=== PATIENT | male | born 1930 | race Caucasian/White ===

== ENCOUNTER 2018-02-10 05:22 | Emergency (ER) | payer MEDICARE, OTHER ==
[~2018-02-10] VITALS: Ht 182.9 cm; Wt 102.1 kg
--- NOTE | 2018-02-10 05:36 | ED.ADGEN ---
Past History Past Medical History: A-Fib, CAD, Diabetes (TIFFANY DAVIS MD) Past Medical History: Kidney Stones (SAMINA HERNÁNDEZ MD) Past Surgical History: Other (TIFFANY DAVIS MD) Adult General Chief Complaint Chief Complaint "...I just got off the plane from [place] .. I know I am constipated.. .I off my prunes... I here for a big family reunion...:We are going the bury his ashes... With my brother was killed in a Bombing raid over [place] 47 years ago.. they just recently found his remains..."... ".. But I hurting down here on the Lt.....maybe something more than constipation... ".." I just did not want to mess up the reunion..." (TIFFANY DAVIS MD) HPI HPI Patient is a 87 year old male who presents with above hx and complaints of Lt. lower quadrant. Patient denies any previous history of diverticulitis. He has periodic constipation. Patient states pain comes more severe and is difficult walking because of pain. Patient has history of multiple medical problems. Patient diabetic, hypertensive, peripheral neuropathy, coronary artery disease, urinary retention, enlarged prostate, gait disorder, GERD, TIA, Hx. renal stones and Afib. Patient last ate trout at [employer] by the airport from 8 hours ago. No history of trauma. Recent travel from [place]. (TIFFANY DAVIS MD) Review of Systems Review of Systems Constitutional: Denies fever or chills [] Eyes: Denies change in visual acuity, redness, or eye pain [] HENT: Denies nasal congestion or sore throat [] Respiratory: Denies cough or shortness of breath [] Cardiovascular: No additional information not addressed in HPI [] GI: Complaints of left lower quadrant abdominal pain, nausea. Denies vomiting, bloody stools or diarrhea [] : Denies dysuria or hematuria [] Musculoskeletal: History of arthritic joint pain [] Integument: Denies rash or skin lesions [] Neurologic: Denies headache, focal weakness or sensory changes [] Endocrine: Hx. diabetes All other systems were reviewed and found to be within normal limits, except as documented in this note. (TIFFANY DAVIS MD) Family History Family History Noncontributory (TIFFANY DAVIS MD) Current Medications Current Medications Current Medications Medications (Trade) Dose Ordered Sig/Brendan Start Time Stop Time Status Last Admin Dose Admin Ceftriaxone Sodium 1 gm/ Sodium Chloride 50 ml @ 100 mls/hr 1X ONCE 02/10/18 07:45 02/10/18 08:14 UNV Ceftriaxone Sodium (Rocephin) 1 gm 1X ONCE 02/10/18 08:15 02/10/18 08:16 DC 02/10/18 08:30 1 GM Famotidine (Pepcid Vial) 20 mg 1X ONCE 02/10/18 06:30 02/10/18 06:31 DC 02/10/18 07:14 20 MG Fentanyl Citrate (Fentanyl 2ml Vial) 25 mcg PRN Q15MIN PRN 02/10/18 06:30 02/11/18 06:29 02/10/18 07:15 0.25 MCG Glycerin (Sani-Supp Adult) 1 supp STK-MED ONCE 02/10/18 05:41 02/10/18 05:42 DC Info (Do NOT chart on this entry -- for MONITORING) 1 each PRN DAILY PRN 02/10/18 06:30 02/12/18 06:29 Iohexol (Omnipaque 240 Mg/ml) 30 ml 1X ONCE 02/10/18 06:30 02/10/18 06:31 DC 02/10/18 08:07 30 ML Iohexol (Omnipaque 300 Mg/ml) 75 ml 1X ONCE 02/10/18 06:30 02/10/18 06:31 DC 02/10/18 08:07 75 ML Magnesium Hydroxide (Milk Of Magnesia) 2,400 mg 1X ONCE 02/10/18 06:30 02/10/18 06:31 DC 02/10/18 08:29 2,400 MG Metronidazole 100 ml @ 100 mls/hr 1X ONCE 02/10/18 08:10 02/10/18 09:09 DC 02/10/18 08:31 100 MLS/HR Ondansetron HCl (Zofran) 8 mg 1X ONCE 02/10/18 06:30 02/10/18 06:31 DC 02/10/18 07:14 8 MG Sodium Chloride 1,000 ml @ 100 mls/hr Q10H 02/10/18 06:15 02/10/18 16:14 02/10/18 07:13 100 MLS/HR (SAMINA HERNÁNDEZ MD) Allergies Allergies Allergies Uncoded Allergies Type Severity Reaction Last Updated Verified sulfa Allergy Unknown Unknown 02/10/18 (SAMINA HERNÁNDEZ MD) Allergies Allergic to sulfa (TIFFANY DAVIS MD) Physical Exam Physical Exam Constitutional: Moderately acute distress, non-toxic appearance. [] HENT: Normocephalic, atraumatic, bilateral external ears normal, oropharynx dry , no oral exudates, nose normal. [] Eyes: PERRLA, EOMI, conjunctiva normal, no discharge. [] Neck: Limited range of motion, no tenderness, supple, no stridor. [] Cardiovascular:Heart rate regular rhythm, no murmur []PMI to the left. Tachycardia. Lungs & Thorax: Bilateral breath sounds equal apex on auscultation []midline coronary artery bypass scar. He is scattered wheezes. Abdomen: Bowel sounds decreased, soft, left lower quadrant tenderness, no masses , no pulsatile masses. Distended. Rectal exam some hard stool. No gross blood. Has ecchymotic area left lower quadrant.- appears to be old Skin: Warm, dry, no erythema, no rash. [] Poor turgor Back: No tenderness, no CVA tenderness. [] Extremities: No tenderness, no cyanosis, no clubbing, ROM intact, no edema. Arthritic changes. Left psoas and heel tap findings Neurologic: Alert and oriented X 3, no gross motor function deficits ( from base line), decrease plantar sensory function, no gross or large focal deficits noted. [Family member daughter states he is at his baseline- neurologically. Psychologic: Affect anxious, judgement normal, mood normal. [] (TIFFANY DAVIS MD) Physical Exam Constitutional: Well developed, well nourished, no acute distress, non-toxic appearance. HENT: Normocephalic, atraumatic, bilateral external ears normal, oropharynx moist, no oral exudates, nose normal. Eyes: RUDY, EOMI, conjunctiva normal, no discharge. Neck: Normal range of motion, no tenderness, supple, no stridor. Cardiovascular: JVP not elevated. No carotid bruit. Nor precordial pulsations or heaves. S1 N,S2N. No murmurs. No rubs or clicks. Thorax and Lungs: Normal respiration. Normal chest expansion. Normal to percuss. Equal breath sounds. No crackles. No wheeze. Abdomen: Bowel sounds normal, soft, with left lower quadrant tenderness, no masses, no pulsatile masses. Skin: Warm, dry, no erythema, no rash. Back: No tenderness, no CVA tenderness. Extremities: Intact distal pulses, no tenderness, no cyanosis, no clubbing, ROM intact, no edema. Neurologic: Alert and oriented X 3, normal motor function, normal sensory function, no focal deficits noted. Psychologic: Affect normal, judgement normal, mood normal. (SAMINA HERNÁNDEZ MD) Current Patient Data Vital Signs Vital Signs Date Time Temp Pulse Resp B/P (MAP) Pulse Ox O2 Delivery O2 Flow Rate FiO2 02/10/18 08:57 62 20 158/66 (96) 96 Room Air 02/10/18 05:43 97.7 (SAMINA HERNÁNDEZ MD) Lab Results Laboratory Tests Test 02/10/18 06:47 02/10/18 06:53 Urine Collection Type Unknown Urine Color Yellow Urine Clarity Cloudy Urine pH 7.0 Urine Specific Steele 1.015 Urine Protein 30 mg/dl (NEG-TRACE) Urine Glucose (UA) Neg mg/dL (NEG) Urine Ketones (Stick) Neg mg/dL (NEG) Urine Blood Large (NEG) Urine Nitrite Neg (NEG) Urine Bilirubin Neg (NEG) Urine Urobilinogen Dipstick 0.2 mg/dL (0.2 mg/dL) Urine Leukocyte Esterase Mod (NEG) Urine RBC 20-40 /HPF (0-2) Urine WBC 11-20 /HPF (0-4) Urine Squamous Epithelial Cells Occ /LPF Urine Bacteria Few /HPF (0-FEW) White Blood Count 12.9 x10^3/uL (4.0-11.0) H Red Blood Count 5.65 x10^6/uL (4.30-5.70) Hemoglobin 15.5 g/dL (13.0-17.5) Hematocrit 47.2 % (39.0-53.0) Mean Corpuscular Volume 84 fL (79-100) Mean Corpuscular Hemoglobin 28 pg (25-35) Mean Corpuscular Hemoglobin Concent 33 g/dL (31-37) Red Cell Distribution Width 17.1 % (11.5-14.5) H Platelet Count 209 x10^3/uL (140-400) Neutrophils (%) (Auto) 78 % (31-73) H Lymphocytes (%) (Auto) 9 % (24-48) L Monocytes (%) (Auto) 11 % (0-9) H Eosinophils (%) (Auto) 1 % (0-3) Basophils (%) (Auto) 1 % (0-3) Neutrophils # (Auto) 10.1 x10^3uL (1.8-7.7) H Lymphocytes # (Auto) 1.2 x10^3/uL (1.0-4.8) Monocytes # (Auto) 1.4 x10^3/uL (0.0-1.1) H Eosinophils # (Auto) 0.2 x10^3/uL (0.0-0.7) Basophils # (Auto) 0.1 x10^3/uL (0.0-0.2) Prothrombin Time 11.3 SEC (9.4-11.4) Prothrombin Time INR 1.1 (0.9-1.1) PTT 27 SEC (23-33) Sodium Level 137 mmol/L (136-145) Potassium Level 3.8 mmol/L (3.5-5.1) Chloride Level 103 mmol/L (98-107) Carbon Dioxide Level 29 mmol/L (21-32) Anion Gap 5 (6-14) L Blood Urea Nitrogen 17 mg/dL (8-26) Creatinine 1.3 mg/dL (0.7-1.3) Estimated GFR (Cockcroft-Gault) 52.3 Glucose Level 123 mg/dL (70-99) H Calcium Level 10.2 mg/dL (8.5-10.1) H Total Bilirubin 0.9 mg/dL (0.2-1.0) Direct Bilirubin 0.2 mg/dL (0.0-0.2) Aspartate Amino Transferase (AST) 16 U/L (15-37) Alanine Aminotransferase (ALT) 21 U/L (16-63) Alkaline Phosphatase 86 U/L (46-116) Creatine Kinase 95 U/L (39-308) Creatine Kinase MB (Mass) 1.1 ng/mL (0.0-3.6) Creatine Kinase MB Relative Index 1.2 % (0-4) Troponin I Quantitative < 0.017 ng/mL (0-0.055) Total Protein 7.5 g/dL (6.4-8.2) Albumin 3.5 g/dL (3.4-5.0) Amylase Level 31 U/L (25-115) Lipase 70 U/L (73-393) L (SAMINA HERNÁNDEZ MD) Lab Results Laboratory Tests Test 02/10/18 06:47 02/10/18 06:53 Urine Collection Type Unknown Urine Color Yellow Urine Clarity Cloudy Urine pH 7.0 Urine Specific Steele 1.015 Urine Protein 30 mg/dl (NEG-TRACE) Urine Glucose (UA) Neg mg/dL (NEG) Urine Ketones (Stick) Neg mg/dL (NEG) Urine Blood Large (NEG) Urine Nitrite Neg (NEG) Urine Bilirubin Neg (NEG) Urine Urobilinogen Dipstick 0.2 mg/dL (0.2 mg/dL) Urine Leukocyte Esterase Mod (NEG) Urine RBC 20-40 /HPF (0-2) Urine WBC 11-20 /HPF (0-4) Urine Squamous Epithelial Cells Occ /LPF Urine Bacteria Few /HPF (0-FEW) White Blood Count 12.9 x10^3/uL (4.0-11.0) H Red Blood Count 5.65 x10^6/uL (4.30-5.70) Hemoglobin 15.5 g/dL (13.0-17.5) Hematocrit 47.2 % (39.0-53.0) Mean Corpuscular Volume 84 fL (79-100) Mean Corpuscular Hemoglobin 28 pg (25-35) Mean Corpuscular Hemoglobin Concent 33 g/dL (31-37) Red Cell Distribution Width 17.1 % (11.5-14.5) H Platelet Count 209 x10^3/uL (140-400) Neutrophils (%) (Auto) 78 % (31-73) H Lymphocytes (%) (Auto) 9 % (24-48) L Monocytes (%) (Auto) 11 % (0-9) H Eosinophils (%) (Auto) 1 % (0-3) Basophils (%) (Auto) 1 % (0-3) Neutrophils # (Auto) 10.1 x10^3uL (1.8-7.7) H Lymphocytes # (Auto) 1.2 x10^3/uL (1.0-4.8) Monocytes # (Auto) 1.4 x10^3/uL (0.0-1.1) H Eosinophils # (Auto) 0.2 x10^3/uL (0.0-0.7) Basophils # (Auto) 0.1 x10^3/uL (0.0-0.2) Prothrombin Time 11.3 SEC (9.4-11.4) Prothrombin Time INR 1.1 (0.9-1.1) PTT 27 SEC (23-33) Sodium Level 137 mmol/L (136-145) Potassium Level 3.8 mmol/L (3.5-5.1) Chloride Level 103 mmol/L (98-107) Carbon Dioxide Level 29 mmol/L (21-32) Anion Gap 5 (6-14) L Blood Urea Nitrogen 17 mg/dL (8-26) Creatinine 1.3 mg/dL (0.7-1.3) Estimated GFR (Cockcroft-Gault) 52.3 Glucose Level 123 mg/dL (70-99) H Calcium Level 10.2 mg/dL (8.5-10.1) H Total Bilirubin 0.9 mg/dL (0.2-1.0) Direct Bilirubin 0.2 mg/dL (0.0-0.2) Aspartate Amino Transferase (AST) 16 U/L (15-37) Alanine Aminotransferase (ALT) 21 U/L (16-63) Alkaline Phosphatase 86 U/L (46-116) Creatine Kinase 95 U/L (39-308) Creatine Kinase MB (Mass) 1.1 ng/mL (0.0-3.6) Creatine Kinase MB Relative Index 1.2 % (0-4) Troponin I Quantitative < 0.017 ng/mL (0-0.055) Total Protein 7.5 g/dL (6.4-8.2) Albumin 3.5 g/dL (3.4-5.0) Amylase Level 31 U/L (25-115) Lipase 70 U/L (73-393) L (TIFFANY DAVIS MD) EKG EKG My interpretation EKG shows a sinus rhythm at 68 bpm. There is leftward axis. But no findings acute STEMI of contralateral changes.[] (TIFFANY DAVIS MD) EKG 07:05 ECG Normal sinus rhythm at 68 with nonspecific T-wave changes I aVL and V6 (SAMINA HERNÁNDEZ MD) Radiology/Procedures Radiology/Procedures I interpretation of plain film shows pulmonary changes., Findings of post coronary artery bypass. No free air under the diaphragm. Extensive distribution stool in right colon. DJD and chronic changes.[] (TIFFANY DAVIS MD) Radiology/[place] [address] IMAGING REPORT Signed PATIENT: REJI RINCON ACCOUNT: [id number] : 1930 LOCATION: ER AGE: 87 SEX: M EXAM STATUS: REG ER ORD. PHYSICIAN: TIFFANY DAVIS MD REASON: Abd. Pain PROCEDURE: ACUTE ABDOMEN SERIES Acute Abdominal Series: Technique: PA view of the chest and supine and upright views of the abdomen were obtained. History: 2 days of abdominal pain. Comparison: None. Findings: There are median sternotomy wires. There is formed stool scattered throughout the colon. There is a paucity small bowel gas. The pulmonary vessels appear normal. There is patchy opacities in the lung bases and blunting of the costophrenic angles. There is no free air. Impression: 1. Constipation. 2. Basilar pulmonary infiltrates likely discoid atelectasis. Electronically signed by: Abi Damon III, MD (02/10/2018 8:09 AM) [facility] DICTATED AND SIGNED BY: ABI DAMON III, MD DATE: 02/10/18 0807 CC: TIFFANY DAVIS MD; SAMINA HERNÁNDEZ MD; NON,STAFF ~ [address] [address] IMAGING REPORT Signed PATIENT: REJI RINCON ACCOUNT: [id number] : 1930 LOCATION: ER AGE: 87 SEX: M EXAM STATUS: REG ER ORD. PHYSICIAN: TIFFANY DAVIS MD REASON: Pain PROCEDURE: CT ABD PELV W/ORAL&IV CONTRAST CT SCAN OF THE ABDOMEN AND PELVIS WITH IV CONTRAST. History: Mid to lower left abdominal pain for 2 days Comparison:None. Procedure: Contiguous axial images of the abdomen and pelvis were performed after the administration of 70 cc of Omni 300 IV contrast and oral contrast. CT Abdomen with contrast: Findings: The heart is moderately dilated. There is formed stool scattered throughout the colon. The scalp condition of the aorta and great vessels without aneurysm. Liver: Unremarkable Spleen: Normal in size and homogeneous. There are 2 splenules inferior to the spleen. Pancreas: Unremarkable Adrenal Glands: Unremarkable Kidneys: There is moderate left hydroureter and left hydronephrosis and significant perinephric edema. There are nonobstructive stones in the renal pelvises bilaterally. There is a simple cyst posteriorly in the lower pole of the right kidney. There is no mass or lymphadenopathy. There is no free air. There is no free fluid. 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 There is also multilevel moderate neuroforaminal stenosis bilaterally. CT Pelvis with Contrast: Findings: There is a 8 mm stone in the urinary bladder near the left UVJ. There is no free fluid. There is no lymphadenopathy. Impression: 1. 8 mm stone in the urinary bladder near the left UVJ. 2. Moderate left hydroureter and left hydronephrosis. 3. Significant perinephric edema left suggests a ruptured calyx. 4. Additional nonobstructive stones the renal pelvises bilaterally. 5. 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 6. Constipation. 7. Moderately dilated cardiomegaly. PQRS Compliance Statement: One or more of the following individualized dose reduction techniques were utilized for this examination: 1. Automated exposure control 2. Adjustment of the mA and/or kV according to patient size 3. Use of iterative reconstruction technique Electronically signed by: Abi Damon III, MD (02/10/2018 8:32 AM) [facility] DICTATED AND SIGNED BY: ABI DAMON III, MD DATE: 02/10/18 0821 CC: TIFFANY DAVIS MD; SAMINA HERNÁNDEZ MD; NON,STAFF ~ (SAMINA HERNÁNDEZ MD) Course & Med Decision Making Course & Med Decision Making Pertinent Labs and Imaging studies reviewed. (See chart for details) Dr. Hernández will make disposition of pt. - reviewed presentation. [] (TIFFANY DAVIS MD) Course & Med Decision Making Patient was endorsed to me by Dr. Davis at 08:00. Abdominal pelvic CT scan pending Patient presents with complaints of left lower quadrant pain DDx-reticulitis, colitis, kidney stone, UTI, constipation, obstruction Patient was stable emergency department. ECG and Troponin showed no evidence of acute coronary syndrome. Labs remarkable for leukocytosis. UA showed hematuria with white cells and bacteria. Abdominal series x-rays were unremarkable. There was moderate amount of stool in the right colon. The abdomen and pelvis showed 8 mm left kidney stone moderate hydronephrosis and fat stranding on the left kidney consistent with ruptured pelvic calyx 09:10 Case discussed with urology on-call Anna Mancilla who is the PA for Dr. Corley. She will talk with her attending for consultation on the patient. Page placed to hospitalist. 10:[address] Padilla hospitalists who agrees with transfer and admission to his service at [facility] (SAMINA HERNÁNDEZ MD) Final Impression Final Impression 1. Left lower quadrant abdomen pain- 2. History of constipation- 3.[Leukocytosis 4. UTI-elevated white count and CBC 5. Diabetes (TIFFANY DAVIS MD) Final Impression Clinical impression Left ureteral calculus Left hydronephrosis Left renal colic Left pyelonephritis (SAMINA HERNÁNDEZ MD) Dragon Disclaimer Dragon Disclaimer This electronic medical record was generated, in whole or in part, using a voice recognition dictation system. (TIFFANY DAVIS MD) Departure Time of Disposition: 10:56 (SAMINA HERNÁNDEZ MD) Disposition: 05 XFER OTHER (Transfer to [facility]-Dr. Padilla accepting) Diagnosis: left ureteral stone, left polynephritis Condition: STABLE TIFFANY DAVIS MD Feb 10, 2018 05:36 SAMINA HERNÁNDEZ MD Feb 10, 2018 08:10
[2018-02-10] MEDS ORDERED: GLYCERIN ADULT 1 SUPP.RECT. ONE (05:41)
[2018-02-10] MEDS ORDERED: IV NORMAL SALINE 1,000ML 1,000 ML IV SCH (06:15)
[2018-02-10] MEDS ORDERED: IOHEXOL 300 MG/ML 75 ML VIAL. IV ONE (06:30)
[2018-02-10] MEDS ORDERED: MAGNESIUM HYDROXIDE 2,400 MG/30 ML ORAL.SUSP. PO ONE (06:30)
[2018-02-10] MEDS ORDERED: CONTRAST GIVEN MC PRN (06:30)
[2018-02-10] MEDS ORDERED: FAMOTIDINE 20 MG/2 ML VIAL IVP ONE (06:30)
[2018-02-10] MEDS ORDERED: IOHEXOL 240 MG/ML 50ML VIAL. PO ONE (06:30)
[2018-02-10] MEDS ORDERED: ONDANSETRON PF 4 MG/2 ML VIAL. IV ONE (06:30)
[2018-02-10 07:07] LABS: BASO # 0.1 x10^3/uL (0.0-0.2); BASO % 1 % (0-3); EOS # 0.2 x10^3/uL (0.0-0.7); EOS % 1 % (0-3); HEMATOCRIT 47.2 % (39.0-53.0); HEMOGLOBIN 15.5 g/dL (13.0-17.5); LYMPH # 1.2 x10^3/uL (1.0-4.8); LYMPH % 9 % (24-48); MEAN CORPUSCULAR HEMOGLOBIN 28 pg (25-35); MEAN CORPUSCULAR HGB CONC 33 g/dL (31-37); MEAN CORPUSCULAR VOLUME 84 fL (79-100); MONO # 1.4 x10^3/uL (0.0-1.1); MONO % 11 % (0-9); NEUT # 10.1 x10^3uL (1.8-7.7); NEUT % 78 % (31-73); PLATELET COUNT 209 x10^3/uL (140-400); RED BLOOD COUNT 5.65 x10^6/uL (4.30-5.70); RED CELL DISTRIBUTION WIDTH 17.1 % (11.5-14.5); WHITE BLOOD COUNT 12.9 x10^3/uL (4.0-11.0)
--- NOTE | 2018-02-10 07:22 | EKG ---
[address] [address] Test Date: 2018-02-10 Test Time: 07:05:15 Pat Name: REJI RINCON Department: Room: Gender: M Configuration Technician: MELVA : 1930 Requested By: TIFFANY DEXTER Order Number: [id number] Reading MD: Measurements Intervals [place] Rate: 68 P: 28 MN: 190 QRS: -10 QRSD: 94 T: 50 QT: 408 QTc: 439 Interpretive Statements SINUS RHYTHM LEFTWARD AXIS OTHERWISE NORMAL ECG RI6.01 No previous ECG available for comparison
[2018-02-10 07:27] LABS: BACTERIA,URINE FEW /HPF (0-FEW); BILIRUBIN,URINE NEG (NEG); CLARITY,URINE CLOUDY; COLOR,URINE YELLOW; GLUCOSE,URINE NEG (NEG); NITRITE,URINE NEG (NEG); RBC,URINE 20-40 /HPF (0-2); SQUAMOUS EPITHELIAL CELL,UR OCC /LPF; UROBILINOGEN,URINE 0.2 mg/dL (0.2 mg/dL)
[2018-02-10 07:40] LABS: ALBUMIN 3.5 g/dL (3.4-5.0); CALCIUM 10.2 mg/dL (8.5-10.1); CREATININE 1.3 mg/dL (0.7-1.3); DIRECT BILIRUBIN 0.2 mg/dL (0.0-0.2); GFR 52.3; POTASSIUM 3.8 mmol/L (3.5-5.1); TOTAL BILIRUBIN 0.9 mg/dL (0.2-1.0); TOTAL PROTEIN 7.5 g/dL (6.4-8.2)
--- NOTE | 2018-02-10 08:13 | RAD ---
Acute Abdominal Series: Technique: PA view of the chest and supine and upright views of the abdomen were obtained. History: 2 days of abdominal pain. Comparison: None. Findings: There are median sternotomy wires. There is formed stool scattered throughout the colon. There is a paucity small bowel gas. The pulmonary vessels appear normal. There is patchy opacities in the lung bases and blunting of the costophrenic angles. There is no free air. Impression: 1. Constipation. 2. Basilar pulmonary infiltrates likely discoid atelectasis. Electronically signed by: Elliott Garza III, MD (02/10/2018 8:09 AM) [facility]
[2018-02-10] MEDS ORDERED: cefTRIAXone IV Push 1 GM VIAL. IVP ONE (08:15)
--- NOTE | 2018-02-10 08:35 | RAD ---
CT SCAN OF THE ABDOMEN AND PELVIS WITH IV CONTRAST. History: Mid to lower left abdominal pain for 2 days Comparison:None. Procedure: Contiguous axial images of the abdomen and pelvis were performed after the administration of 70 cc of Omni 300 IV contrast and oral contrast. CT Abdomen with contrast: Findings: The heart is moderately dilated. There is formed stool scattered throughout the colon. The scalp condition of the aorta and great vessels without aneurysm. Liver: Unremarkable Spleen: Normal in size and homogeneous. There are 2 splenules inferior to the spleen. Pancreas: Unremarkable Adrenal Glands: Unremarkable Kidneys: There is moderate left hydroureter and left hydronephrosis and significant perinephric edema. There are nonobstructive stones in the renal pelvises bilaterally. There is a simple cyst posteriorly in the lower pole of the right kidney. There is no mass or lymphadenopathy. There is no free air. There is no free fluid. 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 There is also multilevel moderate neuroforaminal stenosis bilaterally. CT Pelvis with Contrast: Findings: There is a 8 mm stone in the urinary bladder near the left UVJ. There is no free fluid. There is no lymphadenopathy. Impression: 1. 8 mm stone in the urinary bladder near the left UVJ. 2. Moderate left hydroureter and left hydronephrosis. 3. Significant perinephric edema left suggests a ruptured calyx. 4. Additional nonobstructive stones the renal pelvises bilaterally. 5. 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 6. Constipation. 7. Moderately dilated cardiomegaly. PQRS Compliance Statement: One or more of the following individualized dose reduction techniques were utilized for this examination: 1. Automated exposure control 2. Adjustment of the mA and/or kV according to patient size 3. Use of iterative reconstruction technique Electronically signed by: Elliott Garza III, MD (02/10/2018 8:32 AM) [facility]
[2018-02-10 11:40] VITALS: BP 136/88
== END 2018-02-10 12:10 | disposition short-term general hospital (02) ==
LOC: ER 05:22
DX: N13.2 Hydronephrosis with renal and ureteral calculous obstruction (principal); N12 Tubulo-interstitial nephritis, not specified as acute or chronic; D72.829 Elevated white blood cell count, unspecified; E11.9 Type 2 diabetes mellitus without complications; I48.91 Unspecified atrial fibrillation; I25.10 Atherosclerotic heart disease of native coronary artery without angina pectoris; Z87.442 Personal history of urinary calculi; Z88.2 Allergy status to sulfonamides
CPT/HCPCS: 36415; 74022; 74177; 80048; 80076; 81001; 82150; 82553; 83690; 84484; 85025; 85610; 85730; 87086; 93005; 96365; 96375; 96376; 99285; J0696; J2405; J3010; J3490; Q9966; Q9967; S0028; J7030